=== PATIENT | male | born 1970 | race Caucasian/White ===

== ENCOUNTER 2017-09-22 15:46 | Emergency (ER) | payer OTHER ==
[~2017-09-22] VITALS: Ht 182.9 cm; Wt 90.5 kg
[2017-09-22 15:54] VITALS: BP 142/85; PULSE 87; RESP 16; TEMP 98.1; O2SAT 97
[2017-09-22] MEDS ORDERED: GABA100C4 PO (16:06)
[2017-09-22] MEDS ORDERED: AMBI5TAB PO (16:07)
--- NOTE | 2017-09-22 16:13 | PD ---
HPI Chief Complaint: Injury Time Seen by Provider: 15:58 Travel History International Travel<30 days: No Contact w/Intl Traveler<30days: No Traveled to known affect area: No History of Present Illness HPI 47-year-old male presents to the emergency room for evaluation of right knee pain after injuring it just prior to arrival. Patient was planed basketball. He jumped up to perform a slam dunk and when he landed on his right knee it everted. He had immediate pain. Pain is localized to the medial aspect with radiation below the patella. Worse with range of motion or when he walks on it. He took 600 mg ibuprofen without significant relief in symptoms. Denies paresthesias. PFSH Past Medical History Cancer: Yes (colon ca) Past Surgical History Abdominal Surgery: Yes Social History Alcohol Use: Yes (occassional ) Tobacco Use: No Substance Use: No Allergies-Medications (Allergen,Severity, Reaction): Coded Allergies: No Known Allergies (Unverified , 09/22/17) Reported Meds & Prescriptions Reported Meds & Active Scripts Active Reported Ambien (Zolpidem Tartrate) 5 Mg Tab 2.5 Mg PO HS PRN Gabapentin 100 Mg Cap 200 Mg PO HS Review of Systems Except as stated in HPI: all other systems reviewed are Neg Physical Exam Narrative GENERAL: Well-nourished, well-developed male in no acute distress. Afebrile. SKIN: Focused skin assessment warm/dry. No erythema or ecchymosis. HEAD: Normocephalic. EYES: No scleral icterus. No injection or drainage. NECK: Supple, trachea midline. No JVD or lymphadenopathy. CARDIOVASCULAR: Regular rate and rhythm without murmurs, gallops, or rubs. RESPIRATORY: Breath sounds equal bilaterally. No accessory muscle use. MUSCULOSKELETAL: No cyanosis. Mild edema of the right knee. Tenderness to palpation of the medial aspect. Pain with valgus stress. 2+ dorsalis pedis pulse. Full range of motion but with pain. Data Data Last Documented VS Vital Signs Date Time Temp Pulse Resp B/P (MAP) Pulse Ox O2 Delivery O2 Flow Rate FiO2 09/22/17 15:54 98.1 87 16 142/85 (104) 97 Orders Orders ^ Knee Immobilizer (09/22/17 16:06) Crutches (09/22/17 16:06) MDM Medical Decision Making Medical Screen Exam Complete: Yes Emergency Medical Condition: Yes Medical Record Reviewed: Yes Differential Diagnosis Sprain, strain, fracture, dislocation Narrative Course 47-year-old male presents to the emergency room for evaluation of right knee pain after injuring it just prior to arrival. Patient jumped up and landed with his right knee everted. He denies paresthesias. Right lower extremity is neurovascularly intact with 2+ dorsalis pedis pulse. He has full range of motion. No obvious edema, ecchymosis, or erythema. There is significant pain with valgus stress. I suspect ligament injury. Patient was offered x-ray to evaluate for effusion or possible avulsion fracture but declined stating he would rather follow up with his PCP. He was told to follow-up within 1 week for outpatient MRI or referral to orthopedist. Placed in knee immobilizer and discharged with crutches. Told to return for worsening symptoms. He understands and agrees to plan. Diagnosis Primary Impression: Internal derangement of right knee Referrals: Orthopedist Primary Care Physician Additional Instructions: Use knee immobilizer and crutches until follow-up. Take ibuprofen with food as directed, as needed for pain. Apply ice to the affected area for 20 minutes at a time, as needed for pain and swelling. Follow-up with a primary care physician. Return to the emergency room for worsening symptoms. Med/Other Pt SpecificInfo: Prescription(s) given Disposition: 01 DISCHARGE HOME Condition: Stable Hoa Al[place]renga Sep 22, 2017 16:13
== END 2017-09-22 16:30 | disposition home or self-care (01) ==
LOC: NEPD 15:46
DX: M23.91 Unspecified internal derangement of right knee (principal)
CPT/HCPCS: 99284; E0113; L1830